=== PATIENT | female | born 1965 | race Caucasian/White ===

== ENCOUNTER 2025-05-13 14:00 | Outpatient (RCR) | payer BC, SELFPAY | END 2025-05-13 23:59 | disposition home or self-care (01) | LOC: PT 14:00 | PROVIDERS: Visit Provider Physician Assistant | DX: M47.812 Spondylosis without myelopathy or radiculopathy, cervical region (principal); M50.30 Other cervical disc degeneration, unspecified cervical region | CPT/HCPCS: 97161 ==